=== PATIENT | female | born 1960 | race Caucasian/White ===

== ENCOUNTER 2017-01-22 06:04 | Day surgery (SDC) | payer BC ==
[~2017-01-22] VITALS: Ht 175.3 cm; Wt 103.6 kg
[~2017-01-22 06:04] MED LIST: AUGMENTIN 875-11 TAB; CYMBALTA30 MG PO; GLUCOSAMINE & C1 CAP PO; LEVSIN/ANASP0.125 MG; NAPROSYN500 MG PO; OSCIMIN SR0.375 MG PO; PEPCID40 MG PO; PRILOSEC20 MG PO; PRINIVIL20 MG PO; SINGULAIR10 MG PO; SYNTHROID75 MCG PO
[2017-01-22 07:02] LABS: BASOPHILS 0.8 % (0-2); EOSINOPHILS 11.3 % (0-7); IMMATURE GRANULOCYTES 0.2 % (0-5); LYMPHOCYTES 35.5 % (15-50); MCH 30.6 pg (26.0-34.0); MCHC 33.3 g/dL (31.0-37.0); MCV 91.9 fL (80.0-100.0); MONOCYTES 7.6 % (2-11); NEUTROPHILS 44.6 % (40-80); PLATELET COUNT 271 10x3/uL (130-400); RBC 4.57 10x6/uL (4.00-5.40); RDW 12.6 % (11.5-14.5); WBC 8.3 10x3/uL (4.8-10.8)
[2017-01-22 07:25] LABS: CALC OSMOLALITY 273 mosm/kg (275-300); CALCIUM 8.8 mg/dL (8.5-10.1); CARBON DIOXIDE 21.2 mmol/L (21.0-32.0); CHLORIDE - SERUM 106 mmol/L (98-107); CREATININE - SERUM 0.7 mg/dL (0.6-1.3); GLUCOSE 109 mg/dL (74-106); SODIUM 137 mmol/L (136-145); UREA NITROGEN 9 mg/dL (7-18); eGFR NON AFRICAN AMERICAN > 90 mL/min (90-120)
[2017-01-22 07:26] VITALS: BP 126/64; Ht 175.3 cm; Wt 103.6 kg
[2017-01-22] MEDS ORDERED: METFORMIN HCL500 M1 PO (07:30)
[2017-01-22] MEDS ORDERED: ZETIA10 MG PO (07:30)
[2017-01-22] MEDS ORDERED: LIPITOR20 MG PO (07:31)
--- NOTE | 2017-01-22 09:37 | NUR ---
0915 IV DC WITH CATHER TIP INTACT
--- NOTE | 2017-01-24 19:33 | OP ---
PATIENT NAME: CANDIE PANDYA MEDICAL RECORD: [id number] :58 LOCATION:D[facility] ADMISSION DATE: SURGEON: SOFIA SERRA DO DATE OF OPERATION: 01/22/2017 DATE OF PROCEDURE: 01/22/2017. PROCEDURE: Colonoscopy. INDICATIONS: Screening colonoscopy with a family history of colon cancer in her father. SCOPE: Olympus video pediatric colonoscope. MEDICATIONS: Propofol 460 mg IV per anesthesia. WITHDRAWAL TIME: 10 minutes. ESTIMATED BLOOD LOSS: None. COMPLICATIONS: None. FINDINGS: Informed consent was given. The patient was made comfortable with the above medication. After reaching an adequate level of sedation by slow IV push, the patient was placed on her left side. A digital rectal examination was performed, and was normal. The endoscope was then advanced under direct visualization through the rectum to the cecum, with visualization of the appendiceal orifice and ileocecal valve. The endoscope was slowly withdrawn, mucosa was carefully examined. There was evidence of mild diverticulosis involving the sigmoid colon with small mouth diverticula. Retroflexion was performed in the rectum with small hemorrhoids visualized, which were nonbleeding. There were no polyps or other abnormalities visualized on this examination. Scope was withdrawn from the patient. The patient tolerated the procedure well and there were no complications. IMPRESSION: 1. Mild diverticulosis of the sigmoid colon. 2. Small nonbleeding internal hemorrhoids. PLAN AND RECOMMENDATIONS: 1. Discharge home when recovery parameters are met. 2. Continue high fiber diet. 3. Continue current medications. 4. Recall colonoscopy in 5 years for colon cancer screening purposes. TRANSINT:[id number] Voice Confirmation ID: [id number] DOCUMENT ID: [id number] OPERATIVE REPORT [id number] CANDIE PANDYA SOFIA SERRA DO at 1934 CC: [id number] DICTATION DATE: 01/22/17 0847 TICKET WORKER: 01/22/17 1023 [facility] 01/22/17 [id number] [place] [address]
== END 2017-01-22 09:35 | disposition home or self-care (01) ==
LOC: D.OPS 06:04
PROVIDERS: Anesthesiology
DX: Z12.11 Encounter for screening for malignant neoplasm of colon (principal); K57.30 Diverticulosis of large intestine without perforation or abscess without bleeding; K64.8 Other hemorrhoids; Z80.0 Family history of malignant neoplasm of digestive organs; Z01.812 Encounter for preprocedural laboratory examination